=== PATIENT | male | born 1970 | race Caucasian/White ===

== ENCOUNTER 2016-08-15 10:56 | Emergency (ER) | payer BC ==
--- NOTE | 2016-08-15 12:16 | Emergency Department Record ---
History of Present Illness - General Chief Complaint: Laceration(s) Stated Complaint: LACERATION LEFT THUMB Time Seen by Provider: 08/15/16 12:16 Source: Patient Mode of Arrival: Ambulatory Limitations: No limitations - History of Present Illness Initial Commments: The patient is here due to a L thumb lac which occurred 2 hours ago. He cut it when he was shooting a 9mm and it recoiled and pinched him. His Td is UTD. Onset/Timin -: Hour(s) Place: Home Context: Accidental Associated Symptoms: None Treatments Prior to Arrival: Bandage - [place] Coma Scale Eye Response: (4) Open spontaneously Motor Response: (6) Obeys commands Verbal Response: (5) Oriented Beeler Total: 15 - Related Data Hx Tetanus Toxoid Vaccination: Yes Year of Tetanus Vaccination: ? Patient Tetanus UTD (within 5 yrs): Yes Home Medications Medication Instructions Recorded Confirmed Last Taken Losartan Potassium [Losartan 25 mg PO DAILY 08/15/16 08/15/16 Unknown Potassium] Tamsulosin HCl [Flomax] 0.4 mg PO DAILY 08/15/16 08/15/16 Unknown Previous Rx's Medication Instructions Recorded Cephalexin [Keflex] 500 mg PO QID #20 cap 08/15/16 Allergies Allergy/AdvReac Type Severity Reaction Status Date / Time No Known Drug Allergies Allergy Verified 08/15/16 12:04 Travel Screening - Travel/Exposure Within Last 30 Days Have you traveled within the last 30 days?: No Past Medical History - SOCIAL HISTORY Smoking Status: Never smoker Alcohol Use: None Drug Use: None - RESPIRATORY Hx Respiratory Disorders: No - CARDIOVASCULAR Hx Cardio Disorders: Yes Hx Hypertension: Yes - NEURO Hx Neuro Disorders: No - GI Hx GI Disorders: No - Hx Genitourinary Disorders: Yes Hx Prostate Problems: Yes - ENDOCRINE Hx Endocrine Disorders: No - MUSCULOSKELETAL Hx Musculoskeletal Disorders: No - PSYCH Hx Psych Problems: No - HEMATOLOGY/ONCOLOGY Hx Hematology/Oncology Disorders: No Family Medical History Any Significant Family History?: No Physical Exam - General General Appearance: Alert, Oriented x3, Cooperative, No acute distress - Head Head exam: Atraumatic, Normocephalic, Normal inspection - Eye Eye exam: Normal appearance, PERRL - Extremities Extremities exam: Full ROM, Tenderness. negative: Normal inspection (There is a 2 cm lac to the dorsal L thumb between the MCP and DIP joints. The thumb has normal sensation and extension is normal. There is full ROM with no pain.) Course Vital Signs 08/15/16 12:00 Temperature 97.7 F Pulse Rate 55 L Respiratory 20 Rate Blood Pressure 122/84 Pulse Ox 97 - Reevaluation(s) Reevaluation #1: Procedure note: The L thumb was anesth. with 1.5 CC's Lido 1%. The lac was cleansed sterile fashion and prepped with betadine. The lac was then lavaged with sterile saline and explored. There was no tendon lac visualized. The lac was closed with 4 4.0 nylon sutures. There were no complications. 08/15/16 12:51 Disposition Disposition: Discharge Clinical Impression: Thumb laceration Qualifiers: Encounter type: initial encounter Laterality: left Qualified Code(s): S61.012A - Laceration without foreign body of left thumb without damage to nail, initial encounter Disposition: Home, Self-Care Condition: (1) Good Instructions: Laceration (ED) Additional Instructions: Keep dry for 2 days then no soaking or swimming. Take the Keflex as directed. Please have the sutures removed in 10 days. Watch for signs of infection. Prescriptions: Cephalexin [Keflex] 500 mg PO QID #20 cap Forms: Patient Portal Access Time of Disposition: 12:54
== END 2016-08-15 13:04 | disposition home or self-care (01) ==
LOC: ER 10:56
DX: S61.012A Laceration without foreign body of left thumb without damage to nail, initial encounter (principal); W22.8XXA Striking against or struck by other objects, initial encounter; Y92.009 Unspecified place in unspecified non-institutional (private) residence as the place of occurrence of the external cause
CPT/HCPCS: 12001; 99283

== ENCOUNTER 2018-10-17 13:24 | Emergency (ER) | payer MEDICAID ==
[2018-10-17] MEDS ORDERED: KETOROLAC 30 MG/ML VIAL IM ONE (13:37)
--- NOTE | 2018-10-17 13:41 | Emergency Department Record ---
History of Present Illness - General Chief Complaint: Back Pain/Injury Stated Complaint: BACK PAIN Time Seen by Provider: 10/17/18 13:27 Source: Patient Mode of Arrival: Ambulatory Limitations: No limitations - History of Present Illness Initial Comments: The patient is here due to a 2 day hx of worsening back pain. The patient states he was doing a lot of lifting and thinks he tweeked his back. He stood up 2 days ago and felt worsening pain in the lower back. Now the pain is becoming more severe and is worse with any bending, lifting, walking, or twisting. The patient denies any radiation of the pain down the legs and and no leg numbness, weakness, or any bowel or bladder issues. The patient states he has a long hx of similar problems and gets this same pain every 6 months or so and believes he needs an MRI. Complaint: Back pain Onset/Timin -: Days(s) Similar Symptoms Previously: Yes Place: Home, Work Severity: Severe Severity scale (1-10): 10 Quality: Aching Consistency: Constant Improves With: None Worsens With: None Associated Symptoms: Denies other symptoms Treatment Prior to Arrival Comment:: norco this am from friend - Related Data Previous Rx's Medication Instructions Recorded Cyclobenzaprine HCl [Flexeril] 10 mg PO TID PRN #20 tablet 10/17/18 Naproxen [Naprosyn] 500 mg PO BID #14 tablet. 10/17/18 Allergies Allergy/AdvReac Type Severity Reaction Status Date / Time No Known Drug Allergies Allergy Verified 10/17/18 13:28 Travel Screening - Travel/Exposure Within Last 30 Days Have you traveled within the last 30 days?: No Review of Systems Constitutional: Denies: Chills, Fever Eyes: Denies: Eye discharge ENT: Denies: Congestion Respiratory: Denies: Cough, Dyspnea Past Medical History - SOCIAL HISTORY Smoking Status: Never smoker Alcohol Use: None Drug Use: None - RESPIRATORY Hx Respiratory Disorders: No - CARDIOVASCULAR Hx Cardio Disorders: Yes Hx Hypertension: Yes - NEURO Hx Neuro Disorders: No - GI Hx GI Disorders: No - Hx Genitourinary Disorders: Yes Hx Prostate Problems: Yes - ENDOCRINE Hx Endocrine Disorders: No - MUSCULOSKELETAL Hx Musculoskeletal Disorders: No - PSYCH Hx Psych Problems: No - HEMATOLOGY/ONCOLOGY Hx Hematology/Oncology Disorders: No Family Medical History Any Significant Family History?: No Physical Exam - General General Appearance: Alert, Oriented x3, Cooperative, No acute distress - Head Head exam: Atraumatic, Normocephalic, Normal inspection - Eye Eye exam: Normal appearance, PERRL - Neck Neck exam: Normal inspection, Full ROM. negative: Tenderness - Respiratory Respiratory exam: Normal lung sounds bilaterally. negative: Respiratory distress - Cardiovascular Cardiovascular Exam: Regular rate, Normal rhythm, Normal heart sounds - GI/Abdominal GI/Abdominal exam: Soft, Normal bowel sounds. negative: Tenderness - Extremities Extremities exam: Normal inspection, Full ROM, Normal capillary refill, Other (Neg SLR bilaterally.). negative: Tenderness - Back Back exam: Denies: Normal inspection, Muscle spasm, Paraspinal tenderness, Ve rtebral tenderness - Neurological Neurological exam: Alert, Normal gait, Oriented X3, Reflexes normal (Patellar and Achilles reflexes are 2+ and equal bilaterally.). negative: Abnormal gait, Altered, Motor sensory deficit (Motor and sensory are 5/5 bilaterally to the lower extremities.) Course Vital Signs 10/17/18 13:29 Temperature 98.1 F Pulse Rate 69 Respiratory 18 Rate Blood Pressure 126/93 Pulse Ox 97 - Reevaluation(s) Reevaluation #1: The patient is doing better at this time. His pain is improved and he is ready for home. He also agrees with the plan to see his PCP for recheck and to have an MRI ordered. 10/17/18 14:21 Disposition Disposition: Discharge Clinical Impression: Chronic low back pain Qualifiers: Back pain laterality: unspecified Sciatica presence: without sciatica Qualified Code(s): M54.5 - Low back pain Disposition: Home, Self-Care Condition: (2) Stable Instructions: Low Back Strain (ED) Additional Instructions: Please rest when possible and see your family doctor for recheck later this week to have the MRI ordered. Take the Naprosyn and Flexeril as directed and return to the ER for any worsening pain, leg weakness, numbness, or any bowel or bladder issues. Prescriptions: Cyclobenzaprine HCl [Flexeril] 10 mg PO TID PRN #20 tablet PRN Reason: Pain Naproxen [Naprosyn] 500 mg PO BID #14 tablet.dr Forms: Patient Portal Access Time of Disposition: 14:21 Quality - Quality Measures Quality Measures: N/A - Blood Pressure Screening View Details: Yes Does Patient Have Any of the Following: No Blood Pressure Classification: Hypertensive Reading Systolic Measurement: 126 Diastolic Measurement: 93 Screening for High Blood Pressure: < First Hypertensive BP, F/U Documented > [[id number]] First Hypertensive Follow-up Interventions: Referral to alternative/primary care provider.
== END 2018-10-17 14:34 | disposition home or self-care (01) ==
LOC: ER 13:24
DX: G89.29 Other chronic pain (principal); M54.5 Low back pain; I10 Essential (primary) hypertension
CPT/HCPCS: 99283 ×2; 96372; J1885